=== PATIENT | male | born 1955 | race Caucasian/White ===

== ENCOUNTER 2017-06-04 09:59 | Outpatient (CLI) | payer OTHER | END 2017-06-04 10:23 | disposition home or self-care (01) | LOC: SONOGRAMA 09:59 → MAMO-SONO 11:45 | DX: K40.90 Unilateral inguinal hernia, without obstruction or gangrene, not specified as recurrent (principal) ==

== ENCOUNTER → 2017-06-19 | Outpatient (CLI) | payer OTHER | END | disposition home or self-care (01) | LOC: RAD 09:38 | DX: K40.90 Unilateral inguinal hernia, without obstruction or gangrene, not specified as recurrent (principal); Z01.811 Encounter for preprocedural respiratory examination ==

== ENCOUNTER → 2017-06-20 06:41 | Outpatient (CLI) | payer OTHER | END | disposition home or self-care (01) | LOC: LAB 06:41 | DX: K40.90 Unilateral inguinal hernia, without obstruction or gangrene, not specified as recurrent (principal); Z01.812 Encounter for preprocedural laboratory examination; Z01.810 Encounter for preprocedural cardiovascular examination ==

== ENCOUNTER 2017-07-08 05:10 | Day surgery (SDC) | payer OTHER | END 2017-07-08 13:35 | disposition home or self-care (01) | LOC: CIR.AMB 05:10 | DX: K40.30 Unilateral inguinal hernia, with obstruction, without gangrene, not specified as recurrent (principal) ==

== ENCOUNTER 2017-09-23 15:24 | Outpatient (CLI) | payer OTHER | END 2017-09-23 15:28 | disposition home or self-care (01) | LOC: RAD 15:24 | DX: S69.92XA Unspecified injury of left wrist, hand and finger(s), initial encounter (principal) ==

== ENCOUNTER 2018-04-17 14:48 | Outpatient (CLI) | payer OTHER | END 2018-04-17 14:56 | disposition home or self-care (01) | LOC: RAD 14:48 | DX: R05 Cough (principal) ==

== ENCOUNTER 2023-01-15 06:37 | Outpatient (CLI) | payer OTHER ==
[2023-01-15 08:18] LABS: HEMATOCRIT 40.4 % (39.0-48.0); HEMOGLOBIN 14.4 g/dL (13-16.00); MEAN CELL VOLUME 86.4 fL (80.0-100.00); MEAN CORPUSCULAR HEMOGLOBIN 30.8 pg (27.00-32.0); MEAN CORPUSCULAR HGB CONC 35.6 g/dl (32.0-36.0); PLATELET COUNT 130 K/uL (150-450); RED BLOOD COUNT 4.68 M/uL (4.00-6.00); RED CELL DISTRIBUTION WIDTH 13.7 % (11.5-14.5)
[2023-01-15 08:36] LABS: URINE APPEARANCE Clear; URINE BILIRRUBIN Negative (NEGATIVE); URINE BLOOD Negative; URINE COLOR Yellow; URINE GLUCOSE Negative (NEGATIVE); URINE LEUKOCYTE Negative; URINE NITRATE Negative; URINE PROTEIN Negative (NEGATIVE); URINE UROBILINOGEN 0.2 E.U./dl
[2023-01-15 08:40] LABS: URINE BACTERIA 0 uL (0.0-1933); URINE EPITHELIAL CELLS 0.3 uL (0.0-38.8); URINE RBC 0.2 uL (0.0-20.8); URINE WBC 0.9 uL (0.0-23.2)
[2023-01-15 08:45] LABS: ALBUMIN 4.3 gm/dL (3.4-5.0); BILIRUBIN TOTAL 1.02 mg/dL (0.3-1.2); CALCIUM 9.6 mg/dL (8.5-10.1); CREATININE SERUM 1.12 mg/dL (0.70-1.30); FERRITIN 55.2 NG/ML (26-388); GFR 65.2; GLOBULINA 3.1 G/DL (2.4-3.5); POTASSIUM 4.41 mEq/L (3.5-5.1); PROSTATIC SPECIFIC ANTIGEN 1.22 NG/ML (0.010-4.00); TOTAL PROTEIN 7.4 gm/dL (6.4-8.2); TSH 2.43 uIU/mL (0.358-3.74)
[2023-01-15 11:11] LABS: FOLIC ACID > 20.00 ng/ml (4.78-20); VITAMIN D3 25 HYDROXY 44.94 ng/ml (30-120)
[2023-01-16 08:10] LABS: HEPATITIS C VIRUS ANTIBODY Non Reactive (Non Reactive)
[2023-01-16 10:08] LABS: hav igm Negative (Negative); hcv Non Reactive (Non Reactive); hep b c Negative (Negative)
== END 2023-01-15 06:38 | disposition home or self-care (01) ==
LOC: LAB 06:37
DX: D61.818 Other pancytopenia (principal); E11.9 Type 2 diabetes mellitus without complications; Z13.220 Encounter for screening for lipoid disorders; Z12.11 Encounter for screening for malignant neoplasm of colon; Z12.5 Encounter for screening for malignant neoplasm of prostate; Z13.0 Encounter for screening for diseases of the blood and blood-forming organs and certain disorders involving the immune mechanism; Z13.29 Encounter for screening for other suspected endocrine disorder; Z11.3 Encounter for screening for infections with a predominantly sexual mode of transmission; Z11.9 Encounter for screening for infectious and parasitic diseases, unspecified; Z13.21 Encounter for screening for nutritional disorder; R10.2 Pelvic and perineal pain